=== PATIENT | female | born 1980 | race Caucasian/White ===

== ENCOUNTER 2021-02-01 13:56 | Emergency (ER) | payer MEDICAID ==
[~2021-02-01] VITALS: Ht 160 cm; Wt 97.0 kg
[2021-02-01] MEDS ORDERED: ASPIRIN CHEWABLE 81 MG TABLET. PO ONE (14:30)
--- NOTE | 2021-02-01 14:36 | RAD ---
EXAM: Chest, 2 views. HISTORY: Chest pain. COMPARISON: None. FINDINGS: 2 views of the chest are obtained. There is no infiltrate, pleural effusion or pneumothorax . The heart is normal in size. IMPRESSION: No acute pulmonary finding. Electronically signed by: Pamella Balbuena MD (02/01/2021 2:34 PM) [id number]
[2021-02-01] MEDS ORDERED: KETOROLAC 30 MG/ML VIAL. IVP ONE (15:00)
[2021-02-01] MEDS ORDERED: IV NORMAL SALINE 1,000ML 1,000 ML IV ONE (15:00)
[2021-02-01] MEDS ORDERED: CYCLOBENZAPRINE 10 MG TABLET. PO ONE (15:00)
[2021-02-01 15:07] LABS: BASO # 0.1 x10^3/uL (0.0-0.2); BASO % 1 % (0-3); EOS # 0.3 x10^3/uL (0.0-0.7); EOS % 3 % (0-3); HEMOGLOBIN 13.6 g/dL (12.0-15.5); LYMPH # 1.7 x10^3/uL (1.0-4.8); LYMPH % 17 % (24-48); MEAN CORPUSCULAR HEMOGLOBIN 30 pg (25-35); MEAN CORPUSCULAR HGB CONC 33 g/dL (31-37); MEAN CORPUSCULAR VOLUME 89 fL (79-100); MONO # 0.7 x10^3/uL (0.0-1.1); MONO % 7 % (0-9); NEUT # 7.3 x10^3uL (1.8-7.7); NEUT % 73 % (31-73); PLATELET COUNT 262 x10^3/uL (140-400); RED CELL DISTRIBUTION WIDTH 13.8 % (11.5-14.5); WHITE BLOOD COUNT 10.1 x10^3/uL (4.0-11.0)
[2021-02-01 15:09] LABS: ANION GAP 10 (6-14); BLOOD UREA NITROGEN 11 mg/dL (7-20); BUN/CREATININE RATIO 12 (6-20); CALCIUM 8.7 mg/dL (8.5-10.1); CARBON DIOXIDE 25 mmol/L (21-32); CHLORIDE 107 mmol/L (98-107); CREATININE 0.9 mg/dL (0.6-1.0); GFR 69.3; GLUCOSE 123 mg/dL (70-99); POTASSIUM 3.8 mmol/L (3.5-5.1); SODIUM 142 mmol/L (136-145)
[2021-02-01 15:18] LABS: BARBITURATES NEG (NEG); BENZODIAZEPINES NEG (NEG); CANNABINOIDS NEG (NEG); COCAINE NEG (NEG); METHADONE NEG (NEG); OPIATES NEG (NEG); PHENCYCLIDINE NEG (NEG)
[2021-02-01 15:19] LABS: AMPHETAMINE/METHAMPHETAMINE NEG (NEG)
[2021-02-01 15:23] LABS: BILIRUBIN,URINE NEG (NEG); CLARITY,URINE CLEAR; COLOR,URINE YELLOW; GLUCOSE,URINE NEG (NEG); NITRITE,URINE NEG (NEG); UROBILINOGEN,URINE 0.2 mg/dL (0.2 mg/dL)
[2021-02-01 15:25] LABS: ALBUMIN 3.4 g/dL (3.4-5.0); ALBUMIN/GLOBULIN RATIO 0.9 (1.0-1.7); ALK PHOS 78 U/L (46-116); ALT (SGPT) 23 U/L (14-59); AST (SGOT) 15 U/L (15-37); LIPASE 76 U/L (73-393); MAGNESIUM 2.1 mg/dL (1.8-2.4); TOTAL BILIRUBIN 0.3 mg/dL (0.2-1.0)
[2021-02-01 15:30] LABS: BACTERIA,URINE MOD /HPF (0-FEW); SQUAMOUS EPITHELIAL CELL,UR MOD /LPF
[2021-02-01] MEDS ORDERED: IOHEXOL 350 MG/ML 100 ML VIAL. IV ONE (15:45)
[2021-02-01] MEDS ORDERED: CONTRAST GIVEN. MC PRN (15:45)
--- NOTE | 2021-02-01 15:55 | RAD ---
EXAM: CT angiography of the chest with intravenous contrast. HISTORY: Chest pain. Elevated d-dimer. TECHNIQUE: Computed tomographic images of the chest were obtained following the administration of int ravenous contrast according to angiography protocol. Multiplanar reformatting was performed and three dimensional maximum intensity projection images were obtained. *One or more of the following individualized dose reduction techniques were utilized for this examina tion: 1. Automated exposure control. 2. Adjustment of the mA and/or kV according to patient size. 3. Use of iterative reconstruction technique. COMPARISON: None. FINDINGS: There is no pulmonary embolism. There is no aortic dissection. There is no lymphadenopathy. There is no pneumothorax or pleural effusion. There is a 4 mm nodule along the right minor pleural f issure, likely due to a fissural lymph node. There is posterior dependent and basilar atelectasis. Th ere is no acute finding involving the upper abdomen. There is no acute or suspicious osseous finding. IMPRESSION: 1. No evidence of pulmonary embolism or alternative acute thoracic finding. 2. 3 mm pulmonary nodule along the right minor pleural fissure. This is likely a benign fissural lymp h node. Follow-up can be performed in one year if there are risk factors for pulmonary neoplasm. Electronically signed by: Pamella Balbuena MD (02/01/2021 3:52 PM) [id number]
--- NOTE | 2021-02-01 16:33 | PHYS DOC ---
Past History Past Medical History: Asthma (SHRADDHA STRATTON APRN) Past Surgical History: Appendectomy, Cholecystectomy, , Hysterectomy, Tubal ligation, Other Additional Past Surgical Histo: multiple D&C (SHRADDHA STRATTON APRN) Alcohol Use: Rarely Drug Use: None (CHAYITOSHRADDHA Jones APRN) Adult General Chief Complaint Chief Complaint: CHEST PAIN HPI HPI Patient is a 40-year-old female presents emergency department complaints of left-sided chest pain for the past 2 weeks. Patient states that her pain radiates to her left jaw down to her left shoulder and armpit and down to her left elbow area. Patient reports the symptoms being intermittent, lasting between a few seconds to 5 minutes in duration, states it happens every single day, patient reports 10 episodes of these pains happening today. Patient states that it seems positional at times however at other times she could be sitting still doing nothing when the pain starts. Patient denies any traumatic events to her chest or any injuries to her chest. Patient denies any diaphoretic episodes or shortness of breath. Patient describes her pain a sharp burning sensation. Currently rating a 6 out of 10. Patient states she was seen by her primary care physician Dr. Jolie Dillard on Saturday and had several labs drawn and was told there was nothing wrong. Patient reports she was told by Dr. Dillard to come straight to the emergency department if her pains return and she is unable to get an appointment with her. Patient states Dr. Dillard prescribed her an NSAID to take for her "noncardiac chest pain "but has not had a chance to apple picker the prescription and start taking it yet. Patient states she is slightly nauseated. Patient denies vomiting, diarrhea, constipation. Patient denies abdominal pains, chest or nasal congestion, pains with urination, vaginal discharge or STI concerns, patient denies increased thirst or increased urination. Patient denies dizziness spells, syncopal spells, or visual disturbances. Patient denies homicidal or suicidal ideations, patient denies any other physical complaints or physical concerns. Patient states that she lives at home with her 2 sons ages 18 and 19 that are not experiencing the same symptoms that she. Patient reports both parents have stating her mother at age 57 related to breast cancer with mets, father at age 59 related to colon cancer with mets. Patient denies smoking cigarettes, denies alcohol or drug use. (SHRADDHA STRATTON APRN) Review of Systems Review of Systems 14 body systems of review of systems have been reviewed. See HPI for pertinent positives and negative responses, otherwise all other systems are negative, nonpertinent or noncontributory. (SHRADDHA STRATTON APRN) Current Medications Current Medications Current Medications Medications (Trade) Dose Ordered Sig/Tabatha Start Time Stop Time Status Last Admin Dose Admin Aspirin (Aspirin Chewable) 324 mg 1X ONCE 02/01/21 14:30 02/01/21 14:31 DC 02/01/21 14:50 324 MG Cyclobenzaprine HCl (Flexeril) 10 mg 1X ONCE 02/01/21 15:00 02/01/21 15:07 DC 02/01/21 15:07 10 MG Info (Do NOT chart on this entry -- for MONITORING) 1 each PRN DAILY PRN 02/01/21 15:45 02/03/21 15:44 Iohexol (Omnipaque 350 Mg/ml) 100 ml 1X ONCE 02/01/21 15:45 02/01/21 15:46 DC 02/01/21 15:41 100 ML Ketorolac Tromethamine (Toradol 30mg Vial) 30 mg 1X ONCE 02/01/21 15:00 02/01/21 15:07 DC 02/01/21 15:07 30 MG Sodium Chloride 1,000 ml @ 1,000 mls/hr 1X ONCE 02/01/21 15:00 02/01/21 15:59 DC 02/01/21 15:07 1,000 MLS/HR (SHRADDHA STRATTON APRN) Allergies Allergies Allergies Coded Allergies Type Severity Reaction Last Updated Verified morphine Allergy Severe anaphylactic 02/01/21 Yes acetaminophen Allergy Unknown hives 02/01/21 Yes butalbital Allergy Unknown hives 02/01/21 Yes caffeine Allergy Unknown hives 02/01/21 Yes codeine Allergy Unknown hives 02/01/21 Yes sumatriptan Allergy Unknown hives 02/01/21 Yes (SHRADDHA STRATTON APRN) Physical Exam Physical Exam Constitutional: Well developed, well nourished, no acute distress, non-toxic appearance. [] HENT: Normocephalic, atraumatic, bilateral external ears normal, oropharynx moist, no oral exudates, nose normal. [] Eyes: PERRLA, EOMI, conjunctiva normal, no discharge. [] Neck: Normal range of motion, no tenderness, supple, no stridor. [] Cardiovascular:Heart rate regular rhythm, no murmur [] Lungs & Thorax: Bilateral breath sounds clear to auscultation [] Abdomen: Bowel sounds normal, soft, no tenderness, no masses, no pulsatile masses. [] Skin: Warm, dry, no erythema, no rash. [] Back: No tenderness, no CVA tenderness. [] Extremities: No tenderness, no cyanosis, no clubbing, ROM intact, no edema. [] Neurologic: Alert and oriented X 3, normal motor function, normal sensory function, no focal deficits noted. [] Psychologic: Affect normal, judgement normal, mood normal. [] (SHRADDHA STRATTON APRN) Current Patient Data Vital Signs Vital Signs Date Time Temp Pulse Resp B/P (MAP) Pulse Ox O2 Delivery O2 Flow Rate FiO2 02/01/21 14:21 97.9 105 18 168/93 (118) 97 Room Air Lab Results Laboratory Tests Test 02/01/21 14:48 02/01/21 15:00 White Blood Count 10.1 x10^3/uL Red Blood Count 4.60 x10^6/uL Hemoglobin 13.6 g/dL Hematocrit 41.0 % Mean Corpuscular Volume 89 fL Mean Corpuscular Hemoglobin 30 pg Mean Corpuscular Hemoglobin Concent 33 g/dL Red Cell Distribution Width 13.8 % Platelet Count 262 x10^3/uL Neutrophils (%) (Auto) 73 % Lymphocytes (%) (Auto) 17 % Monocytes (%) (Auto) 7 % Eosinophils (%) (Auto) 3 % Basophils (%) (Auto) 1 % Neutrophils # (Auto) 7.3 x10^3uL Lymphocytes # (Auto) 1.7 x10^3/uL Monocytes # (Auto) 0.7 x10^3/uL Eosinophils # (Auto) 0.3 x10^3/uL Basophils # (Auto) 0.1 x10^3/uL Prothrombin Time 9.3 SEC Prothromb Time International Ratio 0.9 Activated Partial Thromboplast Time 22 SEC D-Dimer (Benita) 0.69 mg/L Sodium Level 142 mmol/L Potassium Level 3.8 mmol/L Chloride Level 107 mmol/L Carbon Dioxide Level 25 mmol/L Anion Gap 10 Blood Urea Nitrogen 11 mg/dL Creatinine 0.9 mg/dL Estimated GFR (Cockcroft-Gault) 69.3 BUN/Creatinine Ratio 12 Glucose Level 123 mg/dL Calcium Level 8.7 mg/dL Magnesium Level 2.1 mg/dL Total Bilirubin 0.3 mg/dL Aspartate Amino Transf (AST/SGOT) 15 U/L Alanine Aminotransferase (ALT/SGPT) 23 U/L Alkaline Phosphatase 78 U/L Creatine Kinase 44 U/L Creatine Kinase MB (Mass) < 0.5 ng/mL Creatine Kinase MB Relative Index % Troponin I Quantitative < 0.017 ng/mL WR-Bmb-H-Type Natriuretic Peptide 35 pg/mL Total Protein 7.0 g/dL Albumin 3.4 g/dL Albumin/Globulin Ratio 0.9 Lipase 76 U/L Urine Collection Type Unknown Urine Color Yellow Urine Clarity Clear Urine pH 6.5 Urine Specific [place] 1.025 Urine Protein Neg Urine Glucose (UA) Neg mg/dL Urine Ketones (Stick) Neg mg/dL Urine Blood Trace Urine Nitrite Neg Urine Bilirubin Neg Urine Urobilinogen Dipstick 0.2 mg/dL Urine Leukocyte Esterase Neg Urine RBC 3-5 /HPF Urine WBC 5-10 /HPF Urine Squamous Epithelial Cells Mod /LPF Urine Bacteria Mod /HPF Urine Mucus Slight /LPF Urine Opiates Screen Neg Urine Methadone Screen Neg Urine Barbiturates Neg Urine Phencyclidine Screen Neg Urine Amphetamine/Methamphetamine Neg Urine Benzodiazepines Screen Neg Urine Cocaine Screen Neg Urine Cannabinoids Screen Neg Urine Ethyl Alcohol Neg Current Medications Medications (Trade) Dose Ordered Sig/Tabatha Route PRN Reason Start Time Stop Time Status Last Admin Dose Admin Aspirin (Aspirin Chewable) 324 mg 1X ONCE PO 02/01/21 14:30 02/01/21 14:31 DC 02/01/21 14:50 324 MG Ketorolac Tromethamine (Toradol 30mg Vial) 30 mg 1X ONCE IVP 02/01/21 15:00 02/01/21 15:07 DC 02/01/21 15:07 30 MG Cyclobenzaprine HCl (Flexeril) 10 mg 1X ONCE PO 02/01/21 15:00 02/01/21 15:07 DC 02/01/21 15:07 10 MG Sodium Chloride 1,000 ml @ 1,000 mls/hr 1X ONCE IV 02/01/21 15:00 02/01/21 15:59 DC 02/01/21 15:07 1,000 MLS/HR Iohexol (Omnipaque 350 Mg/ml) 100 ml 1X ONCE IV 02/01/21 15:45 02/01/21 15:46 DC 02/01/21 15:41 100 ML Info (Do NOT chart on this entry -- for MONITORING) 1 each PRN DAILY PRN MC SEE COMMENTS 02/01/21 15:45 02/03/21 15:44 Laboratory Tests Test 02/01/21 14:48 02/01/21 15:00 White Blood Count 10.1 x10^3/uL (4.0-11.0) Red Blood Count 4.60 x10^6/uL (3.50-5.40) Hemoglobin 13.6 g/dL (12.0-15.5) Hematocrit 41.0 % (36.0-47.0) Mean Corpuscular Volume 89 fL (79-100) Mean Corpuscular Hemoglobin 30 pg (25-35) Mean Corpuscular Hemoglobin Concent 33 g/dL (31-37) Red Cell Distribution Width 13.8 % (11.5-14.5) Platelet Count 262 x10^3/uL (140-400) Neutrophils (%) (Auto) 73 % (31-73) Lymphocytes (%) (Auto) 17 % (24-48) L Monocytes (%) (Auto) 7 % (0-9) Eosinophils (%) (Auto) 3 % (0-3) Basophils (%) (Auto) 1 % (0-3) Neutrophils # (Auto) 7.3 x10^3uL (1.8-7.7) Lymphocytes # (Auto) 1.7 x10^3/uL (1.0-4.8) Monocytes # (Auto) 0.7 x10^3/uL (0.0-1.1) Eosinophils # (Auto) 0.3 x10^3/uL (0.0-0.7) Basophils # (Auto) 0.1 x10^3/uL (0.0-0.2) Prothrombin Time 9.3 SEC (9.4-11.4) L Prothrombin Time INR 0.9 (0.9-1.1) Activated Partial Thromboplast Time 22 SEC (23-33) L D-Dimer (Benita) 0.69 mg/L (0.00-0.50) H Sodium Level 142 mmol/L (136-145) Potassium Level 3.8 mmol/L (3.5-5.1) Chloride Level 107 mmol/L (98-107) Carbon Dioxide Level 25 mmol/L (21-32) Anion Gap 10 (6-14) Blood Urea Nitrogen 11 mg/dL (7-20) Creatinine 0.9 mg/dL (0.6-1.0) Estimated GFR (Cockcroft-Gault) 69.3 BUN/Creatinine Ratio 12 (6-20) Glucose Level 123 mg/dL (70-99) H Calcium Level 8.7 mg/dL (8.5-10.1) Magnesium Level 2.1 mg/dL (1.8-2.4) Total Bilirubin 0.3 mg/dL (0.2-1.0) Aspartate Amino Transferase (AST) 15 U/L (15-37) Alanine Aminotransferase (ALT) 23 U/L (14-59) Alkaline Phosphatase 78 U/L (46-116) Creatine Kinase 44 U/L (26-192) Creatine Kinase MB (Mass) < 0.5 ng/mL (0.0-3.6) Creatine Kinase MB Relative Index % (0-4) Troponin I Quantitative < 0.017 ng/mL (0-0.055) GO-Ufs-C-Type Natriuretic Peptide 35 pg/mL (0-124) Total Protein 7.0 g/dL (6.4-8.2) Albumin 3.4 g/dL (3.4-5.0) Albumin/Globulin Ratio 0.9 (1.0-1.7) L Lipase 76 U/L (73-393) Urine Collection Type Unknown Urine Color Yellow Urine Clarity Clear Urine pH 6.5 Urine Specific [place] 1.025 Urine Protein Neg (NEG-TRACE) Urine Glucose (UA) Neg mg/dL (NEG) Urine Ketones (Stick) Neg mg/dL (NEG) Urine Blood Trace (NEG) Urine Nitrite Neg (NEG) Urine Bilirubin Neg (NEG) Urine Urobilinogen Dipstick 0.2 mg/dL (0.2 mg/dL) Urine Leukocyte Esterase Neg (NEG) Urine RBC 3-5 /HPF (0-2) Urine WBC 5-10 /HPF (0-4) Urine Squamous Epithelial Cells Mod /LPF Urine Bacteria Mod /HPF (0-FEW) Urine Mucus Slight /LPF Urine Opiates Screen Neg (NEG) Urine Methadone Screen Neg (NEG) Urine Barbiturates Neg (NEG) Urine Phencyclidine Screen Neg (NEG) Urine Amphetamine/Methamphetamine Neg (NEG) Urine Benzodiazepines Screen Neg (NEG) Urine Cocaine Screen Neg (NEG) Urine Cannabinoids Screen Neg (NEG) Urine Ethyl Alcohol Neg (NEG) (SHRADDHA STRATTON APRN) EKG EKG EKG performed at 1411 by ED mechanical design technician shows a normal sinus rhythm without ectopy heart rate 94 bpm, WI interval 0.122, QTc interval 0.446, no acute STEMI, no ACS, no acute ischemia appreciated, EKG interpreted by ED attending physician Dr. Moreno. Second EKG performed at 1616 by ED mechanical design technician, shows a normal sinus rhythm without ectopy, heart rate 86 bpm, WI interval 0.130, QTc interval 0.441, no acute STEMI, no ACS, no acute ischemia appreciated, EKG interpreted by ED attending physician Dr. Moreno. (SHRADDHA STRATTON APRN) Radiology/Procedures Radiology/Procedures PATIENT: CYRIL CAMACHO ACCOUNT: [id number] : 1980 LOCATION: ER AGE: 40 SEX: F EXAM STATUS: REG ER ORD. PHYSICIAN: SHRADDHA STRATTON APRN REASON: chest pain PROCEDURE: CHEST PA & LATERAL EXAM: Chest, 2 views. HISTORY: Chest pain. COMPARISON: None. FINDINGS: 2 views of the chest are obtained. There is no infiltrate, pleural e ffusion or pneumothorax. The heart is normal in size. IMPRESSION: No acute pulmonary finding. Electronically signed by: Pamella Hopper MD (02/01/2021 2:34 PM) [id number] DICTATED AND SIGNED BY: PAMELLA HOPPER MD DATE: 02/01/21 1434 CC: SHRADDHA STRATTON APRN; EMERGENCY,DEPARTMENT; PCP,NO ~MTH0 0 PATIENT: CYRIL CAMACHO ACCOUNT: [id number] : 1980 LOCATION: ER AGE: 40 SEX: F EXAM STATUS: REG ER ORD. PHYSICIAN: SHRADDHA STRATTON APRN REASON: left sided chest pain, elevated d-dimer 0.65 PROCEDURE: CT ANGIOGRAPHY CHEST EXAM: CT angiography of the chest with intravenous contrast. HISTORY: Chest pain. Elevated d-dimer. TECHNIQUE: Computed tomographic images of the chest were obtained following the administration of intravenous contrast according to angiography protocol. Multiplanar reformatting was performed and three dimensional maximum intensity projection images were obtained. *One or more of the following individualized dose reduction techniques were utilized for this examination: 1. Automated exposure control. 2. Adjustment of the mA and/or kV according to patient size. 3. Use of iterative reconstruction technique. COMPARISON: None. FINDINGS: There is no pulmonary embolism. There is no aortic dissection. There is no lymphadenopathy. There is no pneumothorax or pleural effusion. There is a 4 mm nodule along the right minor pleural fissure, likely due to a fissural lymph node. There is posterior dependent and basilar atelectasis. There is no acute finding involving the upper abdomen. There is no acute or suspicious osseous finding. IMPRESSION: 1. No evidence of pulmonary embolism or alternative acute thoracic finding. 2. 3 mm pulmonary nodule along the right minor pleural fissure. This is likely a benign fissural lymph node. Follow-up can be performed in one year if there are risk factors for pulmonary neoplasm. Electronically signed by: Pamella Hopper MD (02/01/2021 3:52 PM) [id number] DICTATED AND SIGNED BY: PAMELLA HOPPER MD DATE: 02/01/21 4388 CC: SHRADDHA STRATTON APRN; EMERGENCY,DEPARTMENT; PCP,NO ~MTH0 0 (SHRADDHA STRATTON APRN) Heart Score C/O Chest Pain: Yes HEART Score for Chest Pain: HEART Score for Chest Pain Response (Comments) Value History Slighlty/Non-Suspicious 0 ECG Normal 0 Age < 45 0 Risk Factors No Risk Factors 0 Troponin < Normal Limit 0 Total 0 Risk Factors: Risk Factors: DM, Current or recent (<one month) smoker, HTN, HLP, family history of CAD, obesity. Risk Scores: Risk Factors: DM, Current or recent (<one month) smoker, HTN, HLP, family history of CAD, obesity. (SHRADDHA STRATTON APRN) Course & Med Decision Making Course & Med Decision Making Pertinent Labs and Imaging studies reviewed. (See chart for details) 40-year-old female, vital signs reviewed, presents emergency department with complaints of intermittent chest pain for the past 2 weeks. Physical examination consistent with musculoskeletal chest wall pain. However with patient's chief complaint of chest pain and no prior history of visits in the ED to compare, cardiorespiratory work-up was initiated along with D-dimer to rule out emboli. Patient given 1 L normal saline, 4 mg Zofran, 10 mg Flexeril p.o., 30 mg IV Toradol. Patient is EKG unremarkable, patient's chest x-ray unremarkable, D-dimer was slightly elevated, will order CT angio chest to rule out pulmonary embolus. CT angio chest negative for pulmonary emboli, however does show nodule in right lung with recommendation to follow-up in 1 year. Discussed findings with patient, patient states she did not know of any abnormalities of her right lung but will follow up with her primary care physician Dr. Jolie Dillard to let her know. Patient does state Dr. Dillard told her she intends to schedule a sleep study for her. Upon reevaluation of the patient, patient states that her pains are still coming and going, and she has not noticed any difference in pain control. The patient reports an intolerance to oral narcotic medications and does not want any oral narcotic medications. Discussed with patient this is most likely musculoskeletal chest wall pain and encourage patient to apple picker the NSAID medication that her primary care physician Dr. Dillard had prescribed for her. Patient gave verbal understanding of discharge home instructions, follow-up with PCP this week, return to ER precautions and concerns, patient had no further questions or concerns and was discharged home without incident. (SHRADDHA STRATTON APRN) Dragon Disclaimer Dragon Disclaimer This electronic medical record was generated, in whole or in part, using a voice recognition dictation system. (SHRADDHA STRATTON APRN) Departure Departure: Impression: Primary Impression: Musculoskeletal chest pain Additional Impression: Abnormal CT scan, chest Disposition: HOME / SELF CARE / HOMELESS Condition: GOOD Referrals: PCP,NO (PCP) Patient Instructions: Chest Wall Pain Additional Instructions: You were seen today in the emergency department for chest pain. Your chest x- ray did not show any abnormal findings, your lab work did not show any abnormal findings except for your D-dimer was slightly elevated indicating a possible blood clot may be present. Therefore a CT of your chest was performed to rule out any pulmonary blood clots. There were no concerning signs of blood clots in your lung. However as we discussed there is a small nodule in your right lung that the radiologist recommended a follow-up CT in 1 year to compare and reevaluate. Please follow-up with Dr. Jolie Dillard this week to let her know of this so she may perform a follow-up. Please fill the prescription that Dr. Dillard has given you for pain, and keep your follow-up appointment with Dr. Dillard so that she may schedule a sleep study for you for ongoing evaluation of your chest wall pains. Please return to the emergency department for worsening symptoms or other concerns. EMERGENCY DEPARTMENT GENERAL DISCHARGE INSTRUCTIONS Thank you for coming to [facility] (ED) today and trusting us with you care. We trust that you had a positivie experience in our Emergency Department. If you wish to speak to the department management, you may call the director at [phone]. YOUR FOLLOW UP INSTRUCTIONS ARE FOLLOWS: 1. Do you have a private Doctor? If you do not have a private doctor, please ask for a resource list of physicians or clinics that may be able to assist you with follow up care. 2. The Emergency Physician has interpreted your x-rays. The X-Ray specialist will also review them. If there is a change in the findings, you will be notified in 48 hours when at all possible. 3. A lab test or culture has been done, your results will be reviewed and you will be notified if you need a change in treatment. ADDITIONAL INSTRUCTIONS AND INFORMATION: 1. Your care today has been supervised by a physician who is specially trained in emergency care. Many problems require more than one evaluation for a complete diagnosis and treatment. We recommend that you schedule your follow up appointment as recommended to ensure complete treatment of you illness or injury. If you are unable to obtain follow up care and continue to have a problem, or if your condition worsens, we recommend that you return to the ED. 2. We are not able to safely determine your condition over the phone nor are we able to give sound medical advice over the phone. For these safety reasons, if you call for medical advice we will ask you to come to the ED for further evaluation. 3. If you have any questions regarding these discharge instructions please call the ED at [phone]. SAFETY INFORMATION: In the interest of safety, wellness, and injury prevention; we encourage you to wear your sealbelt, if you smoke; quite smoking, and we encourage family to use a prote ctive helmet for bicycling and other sporting events that present an increased risk for head injury. IF YOUR SYMPTOMS WORSEN OR NEW SYMPTOMS DEVELOP, OR YOU HAVE CONCERNS ABOUT YOUR CONDITION; OR IF YOUR CONDITION WORSENS WHILE YOU ARE WAITING FOR YOUR FOLLOW UP APPOINTMENT; EITHER CONTACT YOUR PRIMARY CARE DOCTOR, THE PHYSICIAN WHOSE NAME AND NUMBER YOU WERE GIVEN, OR RETURN TO THE ED IMMEDIATELY. Attending Signature Attending Signature I have reviewed the PA/CHIEF EXECUTIVE OFFICER's note and plan of care. I was available for consultation as needed during the patient's visit in the emergency department. I agree with the clinical impression, plan, and disposition. (SHRADDHA MORENO DO) Problem Qualifiers SHRADDHA STRATTON APRN Feb 01, 2021 16:33 SHRADDHA MORENO DO Feb 01, 2021 18:25
[2021-02-01 16:40] VITALS: BP 131/81
--- NOTE | 2021-02-01 18:55 | EKG ---
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
--- NOTE | 2021-02-01 18:57 | EKG ---
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
== END 2021-02-01 16:40 | disposition home or self-care (01) ==
LOC: ER 13:56
DX: R07.89 Other chest pain (principal); R93.1 Abnormal findings on diagnostic imaging of heart and coronary circulation; J45.909 Unspecified asthma, uncomplicated; Z88.5 Allergy status to narcotic agent; Z88.8 Allergy status to other drugs, medicaments and biological substances
CPT/HCPCS: 36415; 71046; 71275; 80053; 80307; 81001; 82553; 83690; 83735; 83880; 84484; 85025; 85379; 85610; 85730; 87086; 93005; 96361; 96374; 99285; J1885; J7030; Q9967